=== PATIENT | male | born 1995 | race Caucasian/White ===

== ENCOUNTER 2024-07-29 12:53 | Emergency (ER) | payer MEDICAID ==
[~2024-07-29] VITALS: Ht 172.7 cm; Wt 86.0 kg
[2024-07-29 13:10] VITALS: O2SAT 97
[2024-07-29] MEDS: TETANUS, DIPHTHERIA, PERTUSSIS VAC/PF 0.5ML (>10YR OLD) IM ONE (13:45)
[2024-07-29 13:46] VITALS: BP 122/73; PULSE 51; RESP 16; TEMP 36.8; O2SAT 97
== END 2024-07-29 13:53 | disposition home or self-care (01) ==
LOC: ER 12:53
DX: S61.412A Laceration without foreign body of left hand, initial encounter (principal); W26.0XXA Contact with knife, initial encounter; Y93.89 Activity, other specified; Y92.89 Other specified places as the place of occurrence of the external cause; Y99.8 Other external cause status
CPT/HCPCS: 90471; 90715; 99283